=== PATIENT | female | born 1980 | race Caucasian/White ===

== ENCOUNTER 2017-05-17 12:25 | Emergency (ER) | payer OTHER ==
[~2017-05-17] VITALS: Ht 162.6 cm; Wt 71.0 kg
[~2017-05-17 12:25] MED LIST: COLON CLEANSE PO; COLON HERBA1 CAPSULE PO; DOCUSATE SODIU100 MG PO; ENDOCET 5-3251 EACH PO; FLEXERIL10 MG PO; MOTRIN600 MG PO; PEPCID40 MG PO; PERCOCET 5/31 TABLET; PERCOCET 5/31 TABLET PO; SINGULAIR10 MG PO; TRILEPTAL600 MG PO
[2017-05-17 14:08] LABS: HEMATOCRIT 37.6 % (36.0-46.0); MCHC 34.3 G/DL (30.0-36.0); MCV 93.3 FL (83-99); MEAN PLAT.VOLUME 10.7 uM^3 (9.5-12.4); PLATELET COUNT 322 K/uL (156-360); RBC DIS.WIDTH-CV 11.9 % (11.8-14.6); RBC DIS.WIDTH-SD 41.1 % (39-53); RED BLOOD COUNT 4.03 M/uL (3.80-5.20); WHITE BLOOD COUNT 15.5 K/uL (4.1-10.2)
[2017-05-17 14:24] LABS: CHLORIDE 103 mEq/L (99-109); POTASSIUM 4.2 mEq/L (3.7-5.4); SODIUM 135 mEq/L (136-147)
[2017-05-17 14:26] LABS: GLUCOSE 120 mg/dL (70-99)
[2017-05-17 14:26] LABS: ADD MIUA? YES; BILIRUBIN NEGATIVE; BLOOD LARGE; COLOR YELLOW ((YELLOW)); GLUCOSE (STRIP) NEGATIVE; KETONES NEGATIVE; LEUKOCYTES NEGATIVE; NITRITE NEGATIVE; PROTEIN (STRIP) 100; SPECIFIC GRAVITY 1.013 (1.000-1.030); UROBILINOGEN 0.2 MG/DL (0.2-1.0)
[2017-05-17 14:27] LABS: ANION GAP 6 MEQ/L (2-14)
[2017-05-17 14:30] LABS: GFR ESTIMATE (CALCULATED) > 59 mL/min/
[2017-05-17 14:31] LABS: UREA NITROGEN (BUN) 5 mg/dL (9-23)
[2017-05-17 14:38] LABS: QUANTITATIVE HCG < 4.0 MIU/ML
[2017-05-17 14:59] LABS: RED BLOOD CELLS 20-30 /HPF (0-5)
[2017-05-17 15:00] LABS: BACTERIA RARE /HPF; EPITHELIAL CELLS RARE /HPF; MUCUS NONE SEEN /LPF; UCUL ADDED? NO; WHITE BLOOD CELLS RARE /HPF (0-5)
[2017-05-17] MEDS ORDERED: ZOFRAN ODT4 MG PO (16:01)
[2017-05-17] MEDS ORDERED: TORADOL10 MG PO (16:02)
[2017-05-17] MEDS ORDERED: FLOMAX0.4 MG PO (16:02)
[2017-05-17 16:23] VITALS: BP 138/77
== END 2017-05-17 16:23 | disposition home or self-care (01) ==
LOC: EME 12:25
DX: N13.2 Hydronephrosis with renal and ureteral calculous obstruction (principal); R11.2 Nausea with vomiting, unspecified; Z87.442 Personal history of urinary calculi; G89.29 Other chronic pain; M54.9 Dorsalgia, unspecified; Z87.891 Personal history of nicotine dependence
CPT/HCPCS: 74177; 80048; 81003; 84702; 85027; 99281; 99285; J1885; J2405; J7030